=== PATIENT | male | born 1980 ===

== ENCOUNTER 2018-10-13 09:17 | Emergency (ER) | payer MEDICAID ==
[2018-10-13 09:17] VITALS: BMI 31.4
[2018-10-13 09:49] VITALS: BP 116/73; PULSE 63; RESP 16; TEMP 99.2; O2SAT 97
--- NOTE | 2018-10-13 10:10 | C.PDOC ---
History Of Present Illness 37 y/o male presents to the ED for evaluation of slight pain and swelling to the rectum for the past few days. He reports noticing symptoms after passing a bowel movement. Otherwise patient denies any abdominal pain, nausea, vomiting, changes in bowel habits, constipation, fevers, or chills. He arrives to the ED in no apparent distress, ambulatory with steady gait. Time Seen by Provider: 10/13/18 09:45 Chief Complaint (Nursing): GI Problem History Per: Patient History/Exam Limitations: no limitations Onset/Duration Of Symptoms: Days Current Symptoms Are (Timing): Still Present Past Medical History Reviewed: Historical Data, Nursing Documentation, Vital Signs Vital Signs: Last Vital Signs Temp 99.2 F 10/13/18 09:44 Pulse 63 10/13/18 09:44 Resp 16 10/13/18 09:44 BP 116/73 10/13/18 09:44 Pulse Ox 97 10/13/18 09:44 - Medical History PMH: No Chronic Diseases Family History: States: Unknown Family Hx - Social History Hx Tobacco Use: Yes Hx Alcohol Use: No Hx Substance Use: Yes - Immunization History Hx Tetanus Toxoid Vaccination: No Review Of Systems Constitutional: Negative for: Fever, Chills Gastrointestinal: Positive for: Rectal Pain (and swelling). Negative for: Nausea, Vomiting, Abdominal Pain, Diarrhea, Constipation, Hematochezia Genitourinary: Negative for: Dysuria, Frequency Neurological: Negative for: Weakness, Dizziness Physical Exam - Physical Exam Appears: Well, Non-toxic, No Acute Distress Skin: Normal Color, Warm, No Rash Head: Normacephalic Throat: No Erythema Neck: Trachea Midline, Supple Cardiovascular: Rhythm Regular, No Murmur Respiratory: No Decreased Breath Sounds, No Accessory Muscle Use, No Rales, No Rhonchi, No Wheezing Gastrointestinal/Abdominal: Soft, No Tenderness, No Distention, No Guarding, No Rebound, No Hernia Rectal: Rectal Tone (normal), Hemorrhoids (Small, non-thrombosed external hemorrhoid) Extremity: Normal ROM, No Pedal Edema, No Deformity Pulses: Left Radial: Normal, Right Radial: Normal Neurological/Psych: Oriented x3, Normal Speech Gait: Steady ED Course And Treatment O2 Sat by Pulse Oximetry: 97 (RA) Pulse Ox Interpretation: Normal Progress Note: Counseled patient regarding diagnosis and treatment plan. On re- eval, pt is afebrile, hemodynamically stable. Non-toxic. Tolerate PO well in ED. PulseOx 100% on RA. Abd: Soft, non-tender. Rectum: Small external hemorrhoid, non-thrombosed. Patient will be discharged home with prescription for Colace and Anusol-HC cream. Advised to follow up with the clinic in 1-2 days. Disposition Counseled Patient/Family Regarding: Diagnosis, Need For Followup, Rx Given - Disposition Referrals: [facility] [Outside] Disposition: HOME/ ROUTINE Disposition Time: 10:07 Condition: STABLE Additional Instructions: Fiber diet Take laxative as need Hot water sitz baths Use medication as need Follow up with PMD, Surgery as need for further evaluation and treatment return if any new changes. 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 - Scribe Statement The provider has reviewed the documentation as recorded by the Scribjacy Nicole All medical record entries made by the Levon were at my direction and personally dictated by me. I have reviewed the chart and agree that the record accurately reflects my personal performance of the history, physical exam, medical decision making, and the department course for this patient. I have also personally directed, reviewed, and agree with the discharge instructions and disposition.
== END 2018-10-13 10:27 | disposition home or self-care (01) ==
LOC: C.ER 09:17
DX: K64.4 Residual hemorrhoidal skin tags (principal)